=== PATIENT | male | born 1975 | race Caucasian/White ===

== ENCOUNTER 2017-04-16 13:17 | Emergency (ER) | payer OTHER ==
[~2017-04-16] VITALS: Ht 157.5 cm; Wt 120.0 kg
[2017-04-16] MEDS ORDERED: METF500T4 PO (13:43)
[2017-04-16 19:31] VITALS: BP 114/72
[2017-04-16] MEDS ORDERED: IBUPROFEN 800MG TABLET PO ONE (21:00)
[2017-04-16] MEDS ORDERED: LIDOCAINE HCL 1% 20ML VIAL (Pyxis) INJ INFIL ONE (21:00)
== END 2017-04-16 21:50 | disposition home or self-care (01) ==
LOC: ER 13:17
DX: L03.012 Cellulitis of left finger (principal); E11.9 Type 2 diabetes mellitus without complications
CPT/HCPCS: 10060; 99283; Z7610